=== PATIENT | female | born 1975 | race Caucasian/White ===

== ENCOUNTER 2023-11-07 09:32 | Emergency (ER) | payer MEDICAID ==
[~2023-11-07] VITALS: Ht 154.9 cm; Wt 71.7 kg
[2023-11-07 09:59] VITALS: BP 161/99; TEMP 98.4
[2023-11-07] MEDS ORDERED: CYCLOBENZAPRINE 10 MG TABLET ONE (10:17)
[2023-11-07] MEDS ORDERED: IBUPROFEN 600 MG TABLET ONE (10:17)
[2023-11-07] MEDS: CYCLOBENZAPRINE 10 MG TABLET PO ONE (10:19)
[2023-11-07] MEDS: IBUPROFEN 600 MG TABLET PO ONE (10:19)
[2023-11-07] MEDS ORDERED: CYCL5TAB PO (10:24)
[2023-11-07 10:29] VITALS: O2SAT 99
== END 2023-11-07 10:29 | disposition home or self-care (01) ==
LOC: ER 10:05
DX: M54.50 Low back pain, unspecified (principal); E78.00 Pure hypercholesterolemia, unspecified